=== PATIENT | female | born 1995 | race American Indian/Alaskan Native ===

== ENCOUNTER 2018-04-11 18:13 | Emergency (ER) | payer SELFPAY ==
--- NOTE | 2018-04-11 18:36 | Emergency Department Report ---
Blank Doc - Documentation Documentation: This is a 22-year-old female that present with sore throat x1 day. Stated sta rted yesterday. Denies any drooling or hoariness. Denies any other complaints. This initial assessment diagnostic orders/clinical plan/treatment(s) is/are subject to change based on patient's health status, clinical progression and re- assessment by fellow clinical providers in the ED. Further treatment and workup at subsequent clinical providers discretion. Patient/guardians urged not to elope from ED s their condition may be serious if not clinically assessed and managed. Initial orders include: 1-patient sent to [facility] for further evaluation and treatment.
== END 2018-04-11 21:14 | disposition left against medical advice (07) ==
LOC: ED 18:13